=== PATIENT | male | born 1960 | race Caucasian/White ===

== ENCOUNTER 2024-05-02 10:28 | Emergency (ER) | payer OTHER ==
[~2024-05-02] VITALS: Ht 180.3 cm; Wt 161.3 kg
[2024-05-02] MEDS: LIDOCAINE 2% JELLY 11ml (GLYDO) UR ONE (10:45)
[2024-05-02] MEDS: FUROSEMIDE 40 MG/4 ML VIAL IV ONE (11:45)
[2024-05-02 11:46] LABS: Basophils # (auto) 0 10 ^3/uL (0-0.2); Basophils % (auto) 0.5 % (0.0-2.0); Eosinophils # (auto) 0 10 ^3/uL (0-0.8); Eosinophils % (auto) 0.4 % (0.0-7.0); Hematocrit 34.1 % (41.0-53.0); Hemoglobin 11.4 g/dL (13.5-17.5); Lymphocytes # (auto) 0.9 10 ^3/uL (0.4-5.4); Lymphocytes % (auto) 11.8 % (10.0-50.0); Mean Corpuscular Hemoglobin 28.7 pg (28.0-32.0); Mean Corpuscular Hgb Conc. 33.5 g/dL (32.0-36.0); Mean Corpuscular Volume 85.8 fL (80.0-100.0); Monocytes # (auto) 0.7 10 ^3/uL (0-1.3); Neutrophils # (auto) 6.2 10 ^3/uL (1.6-8.6); Neutrophils % (auto) 78.3 % (37.0-80.0); Nucleated Red Blood Cells % 0.1 %; Platelet Count (auto) 161 10^3/uL (140-450); Red Blood Cells 3.98 10^6/uL (4.5-5.90); Red Cell Distribution Width 15.4 % (11.8-14.3); White Blood Cell 7.9 10^3/uL (4.4-10.8)
[2024-05-02 12:09] LABS: Urine Bacteria FEW /hpf (None Seen); Urine WBC 14 /hpf (0 - 3)
[2024-05-02 12:10] LABS: Urine Blood 1+ /uL (Negative); Urine Clarity CLEAR (Clear); Urine Color Straw (Yellow); Urine Protein, UAD Normal (Negative); Urine Specific Gravity 1.007 (1.001-1.035); Urine Urobilinogen Normal (Negative); Urine pH 5.5 (5.0-9.0)
[2024-05-02 12:11] LABS: Alanine Aminotransferase 18 U/L (7-40); Albumin 3.7 g/dL (3.2-4.8); Alkaline Phosphatase 107 U/L (46-116); Anion Gap 6 (5-15); Aspartate Aminotransferase 16 U/L (13-40); BUN/Creatinine Ratio 13.2 (10.0-20.0); Blood Urea Nitrogen 9 mg/dL (9-23); Calcium 9.5 mg/dL (8.7-10.4); Carbon Dioxide 30 mmol/L (20-30); Chloride 97 mmol/L (98-107); Glucose 262 mg/dL (74-106); Sodium 133 mmol/L (136-145)
[2024-05-02 12:12] LABS: Bilirubin, Total 0.4 mg/dL (0.2-1.0)
[2024-05-02] MEDS: cefTRIAXone 1GM/50ML D5W 50 ML IV ONE (12:48)
[2024-05-02 13:17] VITALS: PULSE 90; RESP 20; O2SAT 96
[2024-05-02] MEDS ORDERED: NITR100C6 PO (13:22)
[2024-05-02] MEDS: HYDROcodone-ACET 5/325MG TAB PO ONE (14:20)
[2024-05-02 16:10] VITALS: BP 99/49; PULSE 93; RESP 20; TEMP 98.5; O2SAT 96
== END 2024-05-02 16:09 | disposition home or self-care (01) ==
LOC: ER 10:28 → EDBD 10:28 → ER 16:09
DX: N39.0 Urinary tract infection, site not specified (principal); Z46.6 Encounter for fitting and adjustment of urinary device
CPT/HCPCS: 36415; 51702; 71045; 80053; 81001; 83605; 83880; 84484; 85025; 87086; 87088; 87186; 96365; 99285; J0696